=== PATIENT | male | born 1975 | race Caucasian/White ===

== ENCOUNTER 2019-02-28 16:13 | Emergency (ER) | payer BC ==
--- NOTE | 2019-02-28 17:27 | RAD ---
Radiograph right leg tibia-fibula 2 views: DATE: 02/28/2019 HISTORY: Erythema and pain of right leg. FINDINGS: No fracture or periostitis, and no osteolytic, osteoblastic, or permeative lesion, involving tibia or fibula. Diffuse superficial soft tissue edema. No subcutaneous emphysema or soft tissue calcification. IMPRESSION: 1. No osseous abnormality. 2. Soft tissue edema.
[2019-02-28 17:47] LABS: #Eosinphils 0.1 thou/uL (0.0-0.7); #Monocytes 0.9 thou/uL (0.11-0.59); #Neutrophils 12.1 thou/uL (1.40-6.50); %Basophils 0.3 % (0.0-1.0); %Eosinophils 0.6 % (0.0-10.0); %Lymphocytes 6.8 % (21.0-51.0); %Monocytes 6.3 % (0.0-10.0); %Neutrophils 86.1 % (42.0-75.0); Hemoglobin 15.9 g/dL (14.0-18.0); Mean Corpuscular HGB CONC 35.2 g/dL (32.0-36.0); Mean Corpuscular Hemoglobin 34.6 pg (27.0-31.0); Mean Corpuscular Volume 98.3 fL (78.0-98.0); Mean Platelet Volume 8.7 fL (7.4-10.4); Platelet Count 173 thou/uL (130-400); RBC Distribution Width 11.7 % (11.5-14.5); Red Blood Cell (RBC) Count 4.59 mill/uL (4.70-6.10)
[2019-02-28 18:10] LABS: ALT (SGPT) 29 U/L (8-55); AST (SGOT) 33 U/L (5-34); Albumin 4.4 g/dL (3.5-5.0); Alkaline Phosphatase 65 U/L (40-150); Anion Gap 15 mmol/L (10-20); BUN (Urea Nitrogen) 11 mg/dL (8.9-20.6); Calc. Creatinine Clearance 0 mL/min (70-130); Calcium 9.4 mg/dL (7.8-10.44); Carbon Dioxide 25 mmol/L (22-29); Chloride 101 mmol/L (98-107); Estimated GFR-MDRD 86; Globulin 3.4 g/dL (2.4-3.5); Glucose 109 mg/dL (70-105); Potassium 4.5 mmol/L (3.5-5.1); Protein, Total 7.8 g/dL (6.0-8.3); Sodium 136 mmol/L (136-145)
[2019-02-28] MEDS ORDERED: Clindamycin/D5W 600 mg/50 ml Premix Bag ONE (18:27)
--- NOTE | 2019-02-28 18:29 | ULT ---
VENOUS DUPLEX SONOGRAM RIGHT LOWER EXTREMITY: 02/28/19 HISTORY: Right leg pain and edema. FINDINGS: The right common femoral vein and greater saphenous junction were evaluated along with the femoral, d eep femoral, popliteal, and posterior tibial veins. There is good color and spectral Doppler flow, co mpression and augmentation. At the right lower leg in region of swelling, a sagittally oriented fluid collection measures up to 5 .0 cm length. It lies deep to the subcutaneous tissues, apparently immediately adjacent to the underl patrica bone. IMPRESSION: No sonographic evidence of DVT within the right lower extremity. POS: [facility]
== END 2019-02-28 19:30 | disposition home or self-care (01) ==
LOC: ERS 16:13
DX: L03.115 Cellulitis of right lower limb (principal); E78.5 Hyperlipidemia, unspecified; I10 Essential (primary) hypertension; K21.9 Gastro-esophageal reflux disease without esophagitis; Z79.899 Other long term (current) drug therapy
CPT/HCPCS: 80053; 83605; 85025; 85652; 86140; 87040; 87077; 87149; 96365; J3490

== ENCOUNTER 2019-03-02 20:58 | Inpatient (IN) | payer BC ==
[2019-03-02] MEDS ORDERED: Acetaminophen 500 MG TAB ONE (21:31)
[2019-03-02] MEDS ORDERED: Vancomycin HCl 1.5 GM in Sodium Chloride 0.9% 250 ML 300 ML IVPB ONE (21:45)
--- NOTE | 2019-03-02 21:54 | RAD ---
RIGHT LEG THREE VIEWS: 03/02/19 HISTORY: Swelling in the right leg. FINDINGS/IMPRESSION: Comparison made with exam of 02/28/19. The bony structures are intact. No fracture, dislocation, bony destruction or periosteal reaction is seen. POS: [facility]
--- NOTE | 2019-03-02 21:56 | RAD ---
PORTABLE CHEST ONE VIEW: 03/02/19 at 9:50 p.m. HISTORY: Fever, right leg cellulitis. FINDINGS: The heart size is normal. The lungs are expanded without focal areas of consolidation, pneumothoraces , bela pulmonary edema, or pleural effusions. IMPRESSION: No acute process. POS: [facility]
[2019-03-02 22:04] LABS: #Basophils 0.1 thou/uL (0.0-0.2); #Eosinphils 0.4 thou/uL (0.0-0.7); #Lymphocytes 1.4 thou/uL (1.20-3.40); #Monocytes 1.1 thou/uL (0.11-0.59); #Neutrophils 7.4 thou/uL (1.40-6.50); %Basophils 0.6 % (0.0-1.0); %Eosinophils 3.9 % (0.0-10.0); %Lymphocytes 13.5 % (21.0-51.0); %Monocytes 10.3 % (0.0-10.0); %Neutrophils 71.6 % (42.0-75.0); Hemoglobin 14.8 g/dL (14.0-18.0); Mean Corpuscular HGB CONC 34.4 g/dL (32.0-36.0); Mean Corpuscular Hemoglobin 34.9 pg (27.0-31.0); Mean Platelet Volume 8.2 fL (7.4-10.4); Platelet Count 202 thou/uL (130-400); RBC Distribution Width 11.7 % (11.5-14.5); Red Blood Cell (RBC) Count 4.22 mill/uL (4.70-6.10); White Blood Cell (WBC) Count 10.4 thou/uL (4.8-10.8)
[2019-03-02 22:27] LABS: ALT (SGPT) 37 U/L (8-55); AST (SGOT) 37 U/L (5-34); Albumin 3.9 g/dL (3.5-5.0); Alkaline Phosphatase 76 U/L (40-150); Anion Gap 15 mmol/L (10-20); BUN (Urea Nitrogen) 12 mg/dL (8.9-20.6); Bilirubin, Total 1.1 mg/dL (0.2-1.2); Calc. Creatinine Clearance 0 mL/min (70-130); Carbon Dioxide 22 mmol/L (22-29); Chloride 103 mmol/L (98-107); Estimated GFR-MDRD Greater than 90; Globulin 3.1 g/dL (2.4-3.5); Glucose 88 mg/dL (70-105); Sodium 136 mmol/L (136-145)
[2019-03-02 22:59] LABS: Bacteria/HPF None Seen HPF (None Seen); Bilirubin Negative (Negative); Blood, Urine Negative (Negative); Clarity Clear (Clear); Glucose, Urine (Dipstick) Normal (Negative); Leukocyte Negative Leu/uL (Negative); Nitrite Negative (Negative); Protein, Urine (Dipstick) 30 mg/dL (Neg-Trace); RBC/HPF 0-3 HPF (0-3); Squamous Epithelial None Seen HPF (0-3); Urobilinogen Normal mg/dL (Less than 2); WBC/HPF 0-3 HPF (0-3)
[2019-03-03] MEDS ORDERED: Ondansetron ODT 4 MG TAB SL PRN (00:57)
[2019-03-03] MEDS ORDERED: Ondansetron PF 4 MG/2 ML Vial IVP PRN ×3 (00:57→01:24)
[2019-03-03] MEDS ORDERED: Acetaminophen 325 MG TAB PO PRN ×2 (00:57→01:24)
--- NOTE | 2019-03-03 01:09 | PDOC.HHP ---
Hospitalist HPI - History of Present Illness CC: The swelling in my leg is not getting better History of Present Illness: Mr. Medina is a 43 year old male with a history of hypertension and elevated cholesterol. He noted some swelling and redness in both legs beginning about a week ago. He says he was prescribed Lasix by his physician which has helped with the swelling. His job is in ranching, and he wears boots, which he believes were rubbing against his legs. He developed redness and soreness especially on the right leg. He went to Urgent care, and was prescribed Clindamycin on . He says he has been taking the antibiotics, and staying off his leg as instructed but it has not gotten any better. He notes some fever, and chills in the past few days, but denies any nausea or vomiting, and no other symptoms such as chest pain os difficulty breathing. He is being admitted for failed outpatient treatment of cellulitis. Hospitalist ROS - Review of Systems Constitutional: reports: fever, chills, sweats (no weakness or malaise) Eyes: denies: pain, vision change, conjunctivae inflammation, eyelid inflammation, redness, other ENT: denies: ear pain, ear discharge, nose pain, nose discharge, nose congestion , mouth pain, mouth swelling, throat pain, throat swelling, other Respiratory: denies: cough, dry, shortness of breath, hemoptysis, SOB with excertion, pleuritic pain, sputum, wheezing, other Cardiovascular: reports: edema (+ edema in the right leg >left). denies: chest pain, palpitations, orthopnea, paroxysmal noc. dyspnea, light headedness, other Gastrointestinal: denies: nausea, vomitting, abdominal pain, diarrhea, constipation, melena, hematochezia, other Genitourinary: denies: dysuria, frequency, incontinence, hematuria, retention, other Musculoskeletal: reports: neck pain, leg pain (swelling and redness of the legs as in the HPI). denies: shoulder pain, arm pain, back pain, hand pain, foot pain, other Skin: reports: rash (+ redness of the lower extremities). denies: lesions, nasra , bruising, other Neurological: reports: weakness Hospitalist History - Past Medical History Cardiac: reports: HTN Endocrine: reports: Other (Hyperlipidemia) - Past Surgical History Past Surgical History: reports: Other ([place] tooth removed) - Family History Family History: reports: cancer (Colon cancer in his father, and grandfather) - Social History Smoking Status: Never smoker Alcohol: reports: Occassional (Beer) Drugs: reports: none Living Situation: With Family Domestic Violence: Negative Occupation: Rancher Activity level: independent ambulation Other Social History: ALLERGIES: NKDA CODE STATUS: FULL CODE MEDICATIONS: Lipitor 40 mg a day Omeprazole 20 mg a day Cleocin 300mg QID Amlodipine 10 mg a day Potassium Chloride Ultram 50mg as needed Vitamin B12 - Exam Eye: PERRL, anicteric sclera ENT: normocephalic atraumatic, no oropharyngeal lesions, moist mucosa Neck: supple, symmetric, no JVD, no thyromegaly, no lymphadenopathy, no carotid bruit Heart: RRR, no murmur, no gallops, no rubs, normal peripheral pulses Respiratory: CTAB, no wheezes, no rales, no ronchi, normal chest expansion, no tachypnea, normal percussion Gastrointestinal: soft, non-tender, non-distended, normal bowel sounds, no palpable masses, no hepatomegaly, no splenomegaly Extremities: no cyanosis, no clubbing, 1+ LE edema (+ swelling in the right leg 2x larger than the left, + erythema, and warmth on the right) Skin: normal turgor Neurological: CN's grossly intact, normal sensation to touch, no weakness, no focal deficits Musculoskeletal: normal tone, normal strength, no muscle wasting Psychiatric: normal affect, normal behavior, A&O x 3 Hospitalist Results - Labs Result Diagrams: 03/02/19 21:57 03/02/19 21:57 Lab results: WBC 10.4 thou/uL (4.8-10.8) 03/02/19 21:57 Hgb 14.8 g/dL (14.0-18.0) 03/02/19 21:57 Hct 42.9 % (42.0-52.0) 03/02/19 21:57 MCV 102.0 fL (78.0-98.0) H 03/02/19 21:57 Plt Count 202 thou/uL (130-400) 03/02/19 21:57 Neutrophils % 71.6 % (42.0-75.0) 03/02/19 21:57 Sodium 136 mmol/L (136-145) 03/02/19 21:57 Potassium 4.0 mmol/L (3.5-5.1) 03/02/19 21:57 Chloride 103 mmol/L (98-107) 03/02/19 21:57 Carbon Dioxide 22 mmol/L (22-29) 03/02/19 21:57 BUN 12 mg/dL (8.9-20.6) 03/02/19 21:57 Creatinine 0.87 mg/dL (0.7-1.3) 03/02/19 21:57 Glucose 88 mg/dL (70-105) 03/02/19 21:57 Lactic Acid 1.5 mmol/L (0.5-2.2) 03/02/19 21:13 Calcium 9.0 mg/dL (7.8-10.44) 03/02/19 21:57 Total Bilirubin 1.1 mg/dL (0.2-1.2) 03/02/19 21:57 AST 37 U/L (5-34) H 03/02/19 21:57 ALT 37 U/L (8-55) 03/02/19 21:57 Alkaline Phosphatase 76 U/L (40-150) 03/02/19 21:57 Serum Total Protein 7.0 g/dL (6.0-8.3) 03/02/19 21:57 Albumin 3.9 g/dL (3.5-5.0) 03/02/19 21:57 Urine Ketones Negative mg/dL (Negative) 03/02/19 22:40 Urine Blood Negative (Negative) 03/02/19 22:40 Urine Nitrite Negative (Negative) 03/02/19 22:40 Ur Leukocyte Esterase Negative April/uL (Negative) 03/02/19 22:40 Urine RBC 0-3 HPF (0-3) 03/02/19 22:40 Urine WBC 0-3 HPF (0-3) 03/02/19 22:40 Ur Squamous Epith Cells None Seen HPF (0-3) 03/02/19 22:40 Urine Bacteria None Seen HPF (None Seen) 03/02/19 22:40 Hospitalist H&P A/P - Problem (1) Cellulitis of right leg Code(s): L03.115 - CELLULITIS OF RIGHT LOWER LIMB Status: Acute (2) Hypertension Code(s): I10 - ESSENTIAL (PRIMARY) HYPERTENSION Status: Acute (3) Hyperlipidemia Code(s): E78.5 - HYPERLIPIDEMIA, UNSPECIFIED Status: Acute - Plan Plan: * Cellulitis- will have the area marked. Will place on Vancomycin and Zosyn * HTN- reconcile and re-start home medications, and have Hydralazine available for PRN * Hyperlipidemia- continue Lipitor * Place on DVT and GI Prophylaxis
[2019-03-03] MEDS ORDERED: hydrALAZINE 20 MG/ML VIAL SLOW IVP PRN (01:24)
[2019-03-03] MEDS ORDERED: Zolpidem Tartrate 5 MG TAB PO PRN (01:24)
[2019-03-03] MEDS ORDERED: Ondansetron ODT 4 MG TAB PO PRN ×2 (01:24)
[2019-03-03 02:06] VITALS: BMI 28.4
[2019-03-03] MEDS: Piperacillin/Tazobactam 3.375 GM in Sodium Chloride 0.9% 100 ML IVPB SCH ×4 (04:30→20:03)
[2019-03-03 05:03] LABS: #Basophils 0.1 thou/uL (0.0-0.2); #Eosinphils 0.5 thou/uL (0.0-0.7); #Lymphocytes 1.6 thou/uL (1.20-3.40); #Monocytes 0.9 thou/uL (0.11-0.59); #Neutrophils 5.4 thou/uL (1.40-6.50); %Basophils 0.8 % (0.0-1.0); %Eosinophils 5.8 % (0.0-10.0); %Lymphocytes 19.3 % (21.0-51.0); %Monocytes 10.3 % (0.0-10.0); %Neutrophils 63.8 % (42.0-75.0); Hemoglobin 12.5 g/dL (14.0-18.0); Mean Corpuscular HGB CONC 34.4 g/dL (32.0-36.0); Mean Corpuscular Hemoglobin 34.7 pg (27.0-31.0); Platelet Count 179 thou/uL (130-400); RBC Distribution Width 11.6 % (11.5-14.5); White Blood Cell (WBC) Count 8.5 thou/uL (4.8-10.8)
[2019-03-03 05:24] LABS: Anion Gap 13 mmol/L (10-20); BUN (Urea Nitrogen) 10 mg/dL (8.9-20.6); Calc. Creatinine Clearance 150 mL/min (70-130); Calcium 8.2 mg/dL (7.8-10.44); Carbon Dioxide 22 mmol/L (22-29); Chloride 106 mmol/L (98-107); Estimated GFR-MDRD Greater than 90; Glucose 100 mg/dL (70-105); Potassium 3.3 mmol/L (3.5-5.1); Sodium 138 mmol/L (136-145)
[2019-03-03] MEDS ORDERED: Potassium Chloride 20 MEQ TAB PO SCH (07:30)
[2019-03-03] MEDS: Enoxaparin Sodium 40 MG/0.4 ML SYRINGE SC SCH (08:11)
[2019-03-03] MEDS: Saccharomyces boulardii 250 MG CAP PO SCH (08:11)
[2019-03-03] MEDS ORDERED: Vancomycin HCl 1 GM in Premix Bag 1 BAG IVPB SCH (09:00)
[2019-03-03] MEDS: Vancomycin HCl 1.5 GM in Sodium Chloride 0.9% 250 ML 300 ML IVPB SCH ×2 (09:35→21:38)
--- NOTE | 2019-03-03 11:15 | PDOC.HOSPP ---
- Subjective Encounter Date: 03/03/19 Encounter Time: 11:15 Subjective: 43 y/o with HTN admitted with persistent right lower extremity redness and swelling despite oral clindamycin therapy. No associated fever, cough, SOB, PND or orthopnea. reported that it started on both lower limbs but left has improved. - Objective Vital Signs & Weight: Vital Signs (12 hours) Temp Pulse Resp BP Pulse Ox 03/03/19 07:54 99.0 F 98 20 126/75 98 03/03/19 05:24 98.5 F 87 18 116/66 100 03/03/19 01:30 98.5 F 90 18 128/75 98 Weight Weight 181 lb 9 oz Result Diagrams: 03/03/19 04:31 03/03/19 04:31 Hospitalist ROS - Medication Medications: Active Medications Generic Name Dose Route Start Last Admin Trade Name Freq PRN Reason Stop Dose Admin Enoxaparin Sodium 40 mg 03/03/19 09:00 03/03/19 08:11 Lovenox SC 40 mg 0900 LILIANA Administration Piperacillin Sod/Tazobactam 100 mls @ 200 mls/hr 03/03/19 03:00 03/03/19 08: 11 Sod 3.375 gm/ Sodium Chloride IVPB 100 mls 0300,0900,1500,2100 LILIANA Administration Vancomycin HCl 1.5 gm/ Sodium 300 mls @ 200 mls/hr 03/03/19 09:00 03/03/19 09 :35 Chloride IVPB 300 mls Q12HR LILIANA Administration Saccharomyces Boulardii 250 mg 03/03/19 09:00 03/03/19 08:11 Florastor PO 250 mg DAILY LILIANA Administration - Exam General Appearance: awake alert Eye: anicteric sclera ENT: normocephalic atraumatic Neck: supple, symmetric, no JVD Heart: RRR, no murmur Respiratory: CTAB Gastrointestinal: soft, non-tender, non-distended, normal bowel sounds Extremeties - other findings: Right leg swelling and erythema noted Skin - other findings: scattered papules/petechia with some excoriation noted on the left leg Neurological: CN's grossly intact, no focal deficits Psychiatric: normal affect, A&O x 3 Hosp A/P (1) Leg edema, right Code(s): R60.0 - LOCALIZED EDEMA Status: Acute (2) Hypokalemia Code(s): E87.6 - HYPOKALEMIA Status: Acute (3) Cellulitis of right leg Code(s): L03.115 - CELLULITIS OF RIGHT LOWER LIMB Status: Acute (4) Hyperlipidemia Code(s): E78.5 - HYPERLIPIDEMIA, UNSPECIFIED Status: Acute (5) Hypertension Code(s): I10 - ESSENTIAL (PRIMARY) HYPERTENSION Status: Acute - Plan Replete serum potassium and get magnesium level. Get BNP given history of bilateral leg edema. Also get venous doppler to rule out DVT Continue IV antibiotics. Keep affected limb elevated.
[2019-03-03] MEDS: diphenhydrAMINE 25 MG CAP PO PRN (21:12)
--- NOTE | 2019-03-03 21:24 | ULT ---
VENOUS DOPPLER ULTRASOUND OF THE RIGHT LOWER EXTREMITY: History: Right lower extremity pain and redness. Technique: Grayscale, color, and spectral doppler imaging of the deep venous system of the right lowe r extremity was performed. FINDINGS: There is good flow, compression, and augmentation noted in the right common femoral, femoral, deep fe moral, popliteal, posterior tibial and greater saphenous veins. There is a 3.8 x 5.1 x 1.3 cm fluid collection in the right lechuga of unknown etiology. IMPRESSION: No evidence of DVT in the right lower extremity. POS: [facility]
[2019-03-04] MEDS: Piperacillin/Tazobactam 3.375 GM in Sodium Chloride 0.9% 100 ML IVPB SCH ×4 (02:20→21:55)
[2019-03-04 05:44] LABS: Albumin 3.3 g/dL (3.5-5.0); Anion Gap 14 mmol/L (10-20); BUN (Urea Nitrogen) 9 mg/dL (8.9-20.6); BUN/Creatinine Ratio 11.39; Calc. Creatinine Clearance 139 mL/min (70-130); Calcium 8.6 mg/dL (7.8-10.44); Carbon Dioxide 22 mmol/L (22-29); Chloride 108 mmol/L (98-107); Estimated GFR-MDRD Greater than 90; Glucose 100 mg/dL (70-105); Phosphorus 3.3 mg/dL (2.3-4.7); Potassium 3.5 mmol/L (3.5-5.1); Sodium 140 mmol/L (136-145)
[2019-03-04] MEDS: Enoxaparin Sodium 40 MG/0.4 ML SYRINGE SC SCH (08:19)
[2019-03-04] MEDS: Saccharomyces boulardii 250 MG CAP PO SCH (08:19)
[2019-03-04] MEDS: Vancomycin HCl 1.5 GM in Sodium Chloride 0.9% 250 ML 300 ML IVPB SCH ×2 (08:22→17:07)
[2019-03-04 08:41] LABS: Vancomycin, Trough 8.8 ug/mL
[2019-03-04] MEDS: diphenhydrAMINE 25 MG CAP PO PRN ×2 (14:47→21:55)
--- NOTE | 2019-03-04 16:24 | PDOC.HOSPP ---
- Subjective Encounter Date: 03/04/19 Encounter Time: 11:22 Subjective: 43 y/o with HTN admitted with persistent right lower extremity redness and swelling despite oral clindamycin therapy. No associated fever, cough, SOB, PND or orthopnea. Feeling better. Remained afebrile. - Objective Vital Signs & Weight: Vital Signs (12 hours) Temp Pulse Resp BP Pulse Ox 03/04/19 12:00 98.1 F 82 16 137/82 99 03/04/19 08:15 98 03/04/19 08:00 98.3 F 85 18 117/65 98 Weight Weight 181 lb 9 oz I&O: 03/03/19 03/04/19 03/05/19 06:59 06:59 06:59 Intake Total 1400 Balance 1400 Result Diagrams: 03/03/19 04:31 03/04/19 04:45 Hospitalist ROS - Medication Medications: Active Medications Generic Name Dose Route Start Last Admin Trade Name Freq PRN Reason Stop Dose Admin Diphenhydramine HCl 25 mg 03/03/19 20:46 03/04/19 14:47 Benadryl PO 25 mg Q6H PRN Administration Itching & Insomnia Enoxaparin Sodium 40 mg 03/03/19 09:00 03/04/19 08:19 Lovenox SC 40 mg 0900 LILIANA Administration Piperacillin Sod/Tazobactam 100 mls @ 200 mls/hr 03/03/19 03:00 03/04/19 14: 43 Sod 3.375 gm/ Sodium Chloride IVPB 100 mls 0300,0900,1500,2100 LILIANA Administration Saccharomyces Boulardii 250 mg 03/03/19 09:00 03/04/19 08:19 Florastor PO 250 mg DAILY LILIANA Administration - Exam General Appearance: awake alert Eye: anicteric sclera ENT: normocephalic atraumatic Neck: supple, symmetric, no JVD Heart: RRR Respiratory: no wheezes, no rales, no ronchi, normal chest expansion, no tachypnea Gastrointestinal: soft, non-tender, non-distended, normal bowel sounds Gastrointestinal - other findings: obese Extremeties - other findings: Regressing right lower extremity edema. Now localized anteriorly Neurological: CN's grossly intact, no focal deficits Psychiatric: normal affect, A&O x 3 Hosp A/P (1) Cellulitis of right leg Code(s): L03.115 - CELLULITIS OF RIGHT LOWER LIMB Status: Acute (2) Leg edema, right Code(s): R60.0 - LOCALIZED EDEMA Status: Acute (3) Hypokalemia Code(s): E87.6 - HYPOKALEMIA Status: Acute (4) Hyperlipidemia Code(s): E78.5 - HYPERLIPIDEMIA, UNSPECIFIED Status: Acute (5) Hypertension Code(s): I10 - ESSENTIAL (PRIMARY) HYPERTENSION Status: Acute - Plan Continue IV antibiotic Re evaluate patient tomorrow with a view to consulting Gen for possible I&D. Keep affected limb elevated.
[2019-03-04] MEDS ORDERED: Potassium Chloride 20 MEQ TAB PO SCH (16:30)
[2019-03-05] MEDS: Vancomycin HCl 1.5 GM in Sodium Chloride 0.9% 250 ML 300 ML IVPB SCH ×3 (00:29→16:58)
[2019-03-05] MEDS: Piperacillin/Tazobactam 3.375 GM in Sodium Chloride 0.9% 100 ML IVPB SCH ×4 (03:41→20:55)
[2019-03-05] MEDS: diphenhydrAMINE 25 MG CAP PO PRN ×2 (04:48→21:12)
[2019-03-05 08:25] LABS: Vancomycin, Trough 19.5 ug/mL
[2019-03-05] MEDS: Enoxaparin Sodium 40 MG/0.4 ML SYRINGE SC SCH (08:50)
[2019-03-05] MEDS: Saccharomyces boulardii 250 MG CAP PO SCH (08:51)
--- NOTE | 2019-03-05 14:08 | PDOC.HOSPP ---
- Subjective Encounter Date: 03/05/19 Encounter Time: 11:36 Subjective: 43 y/o with HTN admitted with persistent right lower extremity redness and swelling despite oral clindamycin therapy. No associated fever, cough or SOB. Feeling better. Swelling has regressed significantly. Remained afebrile. - Objective Vital Signs & Weight: Vital Signs (12 hours) Temp Pulse Resp BP Pulse Ox 03/05/19 12:00 99.4 F 79 16 127/82 98 03/05/19 08:00 98 03/05/19 07:28 98 F 80 18 120/81 98 03/05/19 03:33 98.3 F 80 16 132/79 98 Weight Weight 181 lb 9 oz I&O: 03/04/19 03/05/19 03/06/19 06:59 06:59 06:59 Intake Total 1400 1900 Output Total 3 Balance 1400 1897 Result Diagrams: 03/03/19 04:31 03/04/19 04:45 Hospitalist ROS - Medication Medications: Active Medications Generic Name Dose Route Start Last Admin Trade Name Freq PRN Reason Stop Dose Admin Diphenhydramine HCl 25 mg 03/03/19 20:46 03/05/19 04:48 Benadryl PO 25 mg Q6H PRN Administration Itching & Insomnia Enoxaparin Sodium 40 mg 03/03/19 09:00 03/05/19 08:50 Lovenox SC 40 mg 0900 LILIANA Administration Piperacillin Sod/Tazobactam 100 mls @ 200 mls/hr 03/03/19 03:00 03/05/19 08: 51 Sod 3.375 gm/ Sodium Chloride IVPB 100 mls 0300,0900,1500,2100 LILIANA Administration Vancomycin HCl 1.5 gm/ Sodium 300 mls @ 200 mls/hr 03/04/19 17:00 03/05/19 09 :26 Chloride IVPB 300 mls 0100,0900,1700 LILIANA Administration Saccharomyces Boulardii 250 mg 03/03/19 09:00 03/05/19 08:51 Florastor PO 250 mg DAILY LILIANA Administration - Exam General Appearance: awake alert Eye: anicteric sclera ENT: normocephalic atraumatic Neck: supple, symmetric Heart: RRR Respiratory: no wheezes, no rales, no ronchi, normal chest expansion Gastrointestinal: soft, non-tender, non-distended, normal bowel sounds Extremeties - other findings: Trace edema or right leg. localised area of swelling with fluctuancy on leg Neurological: no focal deficits Musculoskeletal: normal tone, normal strength, no muscle wasting Psychiatric: normal affect, A&O x 3 Hosp A/P (1) Cellulitis of right leg Code(s): L03.115 - CELLULITIS OF RIGHT LOWER LIMB Status: Acute (2) Leg edema, right Code(s): R60.0 - LOCALIZED EDEMA Status: Acute (3) Hypokalemia Code(s): E87.6 - HYPOKALEMIA Status: Acute (4) Hyperlipidemia Code(s): E78.5 - HYPERLIPIDEMIA, UNSPECIFIED Status: Acute (5) Hypertension Code(s): I10 - ESSENTIAL (PRIMARY) HYPERTENSION Status: Acute (6) Abscess of right leg Code(s): L02.415 - CUTANEOUS ABSCESS OF RIGHT LOWER LIMB Status: Acute - Plan Continue IV antibiotic consulting Gen for possible I&D. Keep affected limb elevated.
[2019-03-06] MEDS: Vancomycin HCl 1.5 GM in Sodium Chloride 0.9% 250 ML 300 ML IVPB SCH (01:27)
--- NOTE | 2019-03-06 01:32 | CON ---
DATE OF CONSULTATION: 03/05/2019 SERVICE CONSULTING: Hospitalist, Dr. Zhu. REASON FOR CONSULT: Irrigation & Debridement of leg abscess. HISTORY OF PRESENT ILLNESS: The patient is a 43-year-old male with past medical history of hypertension and hypercholesterolemia. About 1 week ago, he noticed a bump on the anterior portion of his right lechuga. 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 However, a week prior to this, both legs were swollen and he was given Lasix by his primary care physician. After noticing the bump on his lechuga, he noticed redness and soreness from his ankle to his thigh on his right leg. He was given clindamycin. He was taking the antibiotics. However, his pain was getting worse and it was difficult for him to walk. On Monday, he was admitted to be treated for cellulitis refractory to outpatient oral therapy. Since that time, he has received vancomycin and Zosyn here in the hospital, which has greatly reduced the redness and swelling to a focal area on the anterior portion of his right lechuga. He notes it is fly frame tender to walk at times. He has not experienced any fevers or other malaise. PAST SURGICAL HISTORY: Includes wisdom teeth removal. FAMILY HISTORY: Includes colon cancer in his father and grandfather. Socially , the patient has never smoked. Occasionally drinks alcohol and does not do any drugs. He is a rancher and stays very active. ALLERGIES: HE HAS NO KNOWN DRUG ALLERGIES. CODE STATUS: He is a full code. PHYSICAL EXAMINATION/OBJECTIVE: VITAL SIGNS: Temp 98.5, pulse 80, respirations 18, saturating 99% on room air, blood pressure 128/81. GENERAL: No acute distress. Appears comfortable. HEENT: Head is normocephalic and atraumatic. Pupils equal and reactive to light. No cervical lymphadenopathy. CARDIAC: Regular rate and rhythm. No murmurs. RESPIRATORY: Nonlabored breathing. No respiratory distress. ABDOMEN: Nondistended, soft, nontender. EXTREMITIES: Left lower extremity appears normal. Right lower extremity with area of about 3 cm in diameter, firm, erythematous nodule. It is tender to palpation. It has areas of softness and areas that were more firm. No crepitus, no fluctuance. LABORATORY DATA: No recent labs. His last WBC was 8.5 on 03/03/2019. His basic metabolic panel was largely normal. IMAGING DATA: The patient had a vascular ultrasound of his right leg, which showed good flow compression and augmentation of the right common femoral, deep femoral , popliteal, posterior tibial, and greater saphenous veins. A 3.8 x 5.1 x 1.3 cm fluid collection in the right lechuga was noted. ASSESSMENT: 1. 43-year-old male with abscess of the right lechuga likely secondary to trauma such as a spider bite. 2. Right extremity cellulitis of the lower limb. 3. History of hypertension and hyperlipidemia. PLAN: We will do a bedside I&D and aspirate any fluid tomorrow. The procedure was explained to the patient and he agreed. We will have the nurse complete his consent form tomorrow prior to procedure. He is to continue his antibiotics per the primary team. This patient was seen, examined, and discussed with Dr. Samayoa, the attending physician, who agrees with the assessment and plan. Job ID: [id number] [facility]
--- NOTE | 2019-03-06 02:05 | PRG ---
DATE OF SERVICE: 03/06/2019 Mr. Kunz is a 43-year-old gentleman who came in for evaluation of a right leg infection and right leg abscess. Dr. Samayoa was consulted and Dr. Samayoa saw the patient this afternoon and made the decision to take the patient to the OR tomorrow for I and D. The patient has been put on n.p.o. and hold Lovenox at 9am tomorrow. Ready for I and D of the right leg abscess. The patient reports that he has been doing good. The patient is afebrile. Vital signs stable. Pain is well controlled. Right leg swelling subsided. The patient tolerated with current antibiotic regimen. Job ID: [id number] [facility]
[2019-03-06] MEDS: Piperacillin/Tazobactam 3.375 GM in Sodium Chloride 0.9% 100 ML IVPB SCH ×4 (03:43→20:23)
[2019-03-06] MEDS: diphenhydrAMINE 25 MG CAP PO PRN ×2 (07:36→20:22)
[2019-03-06 08:21] LABS: Vancomycin, Trough 23.4 ug/mL
[2019-03-06] MEDS: Saccharomyces boulardii 250 MG CAP PO SCH ×2 (08:36→12:22)
[2019-03-06] MEDS: Vancomycin HCl 1.25 GM in Sodium Chloride 0.9% 250 ML 250 ML IVPB SCH ×2 (08:43→17:21)
[2019-03-06] MEDS ORDERED: Lidocaine 1% w/Epinephrine 1:100K 20 ML VIAL FS SCH (08:45)
[2019-03-06] MEDS ORDERED: Lidocaine 1% w/Epinephrine 1:200K 30 ML VIAL ONE (09:13)
[2019-03-06] MEDS ORDERED: Morphine 4 MG/ML VIAL SLOW IVP SCH (11:30)
[2019-03-06] MEDS ORDERED: Ibuprofen 800 MG TAB PO PRN (11:49)
[2019-03-06] MEDS ORDERED: traMADol HCl 50 MG TAB PO PRN (11:49)
[2019-03-06] MEDS ORDERED: traMADol HCl 50 MG TAB PO SCH (12:00)
[2019-03-06] MEDS: Enoxaparin Sodium 40 MG/0.4 ML SYRINGE SC SCH (12:24)
--- NOTE | 2019-03-06 15:54 | OP ---
DATE OF PROCEDURE: 03/06/2019 PREOPERATIVE DIAGNOSIS: Right leg abscess. POSTOPERATIVE DIAGNOSIS: Right leg abscess. PROCEDURE PERFORMED: Incision and drainage of anterior right leg abscess. INDICATIONS FOR PROCEDURE: A 43-year-old man presented with 1-week history of a painful palpable nodular mass in the anterior right lower leg. There was significant amount of redness. The patient was admitted and placed on intravenous antibiotics. Ultrasound revealed a fluid collection. Decision was made therefore to drain this abscess. DESCRIPTION OF PROCEDURE: Informed consent was obtained from the patient and he was placed in supine position. Anterior right leg was sterilely prepped and draped in usual fashion. The skin over the dome of the palpable flocculence was anesthetized with 1% lidocaine with epinephrine. A crucifix incision was made here using 11 scalpel. Large amount of pus egressed and culture was taken. The abscess cavity was irrigated with saline and packed with 0.5-inch iodoform gauze. A 4 x 4 dressing was placed over this and secured with Lavelle wrap. The patient tolerated the procedure without any apparent complication and remains hemodynamically stable following completion of procedure. Job ID: [id number]
--- NOTE | 2019-03-06 18:04 | PDOC.HOSPP ---
- Subjective Encounter Date: 03/06/19 Encounter Time: 18:02 Subjective: 43 y/o with HTN admitted with persistent right lower extremity redness and swelling despite oral clindamycin therapy. No associated fever, cough or SOB. Had I&D of left proximal lechuga abscess with drainage. Feeling better. Remained afebrile. - Objective Vital Signs & Weight: Vital Signs (12 hours) Temp Pulse Resp BP Pulse Ox 03/06/19 15:38 97.8 F 78 18 111/72 98 03/06/19 11:09 98.6 F 79 18 134/78 100 03/06/19 08:00 97 03/06/19 07:18 98.1 F 78 20 129/81 97 Weight Weight 181 lb 9 oz I&O: 03/05/19 03/06/19 03/07/19 06:59 06:59 06:59 Intake Total 1900 2980 Output Total 3 Balance 1897 2980 Result Diagrams: 03/03/19 04:31 03/04/19 04:45 Hospitalist ROS - Medication Medications: Active Medications Generic Name Dose Route Start Last Admin Trade Name Freq PRN Reason Stop Dose Admin Diphenhydramine HCl 25 mg 03/03/19 20:46 03/06/19 07:36 Benadryl PO 25 mg Q6H PRN Administration Itching & Insomnia Enoxaparin Sodium 40 mg 03/03/19 09:00 03/06/19 12:24 Lovenox SC 40 mg 0900 LILIANA Administration Piperacillin Sod/Tazobactam 100 mls @ 200 mls/hr 03/03/19 03:00 03/06/19 14: 33 Sod 3.375 gm/ Sodium Chloride IVPB 100 mls 0300,0900,1500,2100 LILIANA Administration Vancomycin HCl 1.25 gm/ Sodium 250 mls @ 166.667 mls/hr 03/06/19 09:00 17:21 Chloride IVPB 250 mls 0100,0900,1700 LILIANA Administration Ondansetron HCl 4 mg 03/03/19 01:24 03/06/19 11:24 Zofran IVP 4 mg Q6H PRN Administration Nausea/Vomiting Saccharomyces Boulardii 250 mg 03/03/19 09:00 03/06/19 12:22 Florastor PO 250 mg DAILY LILIANA Administration - Exam General Appearance: awake alert Eye: anicteric sclera ENT: dry oral mucosa Neck: supple, symmetric Heart: RRR Respiratory: no wheezes, no rales, no ronchi, normal chest expansion Gastrointestinal: soft, non-tender, non-distended, normal bowel sounds Extremities: no cyanosis Extremeties - other findings: mild left leg edema. proximal left leg dressing noted Neurological: CN's grossly intact, no focal deficits Psychiatric: normal affect, A&O x 3 Hosp A/P (1) Abscess of right leg Code(s): L02.415 - CUTANEOUS ABSCESS OF RIGHT LOWER LIMB Status: Acute (2) Cellulitis of right leg Code(s): L03.115 - CELLULITIS OF RIGHT LOWER LIMB Status: Acute (3) Leg edema, right Code(s): R60.0 - LOCALIZED EDEMA Status: Acute (4) Hypokalemia Code(s): E87.6 - HYPOKALEMIA Status: Acute (5) Hyperlipidemia Code(s): E78.5 - HYPERLIPIDEMIA, UNSPECIFIED Status: Acute (6) Hypertension Code(s): I10 - ESSENTIAL (PRIMARY) HYPERTENSION Status: Acute - Plan Continue IV antibiotic Await microbe ID and susceptibility Keep affected limb elevated.
[2019-03-06] MEDS ORDERED: Morphine 10 MG/ML VIAL SLOW IVP PRN (21:25)
[2019-03-06] MEDS: Acetaminophen/Codeine 30-300mg Tablet PO SCH (21:37)
--- NOTE | 2019-03-06 23:14 | PRG ---
DATE OF SERVICE: 03/06/2019 SUBJECTIVE: Mr. Kunz is a 43-year-old male, comes into evaluation of potential infection and abscess of the right leg. He underwent I and D with Dr. Samayoa today. After I and D, the patient reports feeling better. Pain subsided. He reports no fever or shortness of breath. He requires morphine p.r.n. with the dressing change b.i.d. PLAN: Plan will be to continue dressing change b.i.d. Continue antibiotic. If the patient is stable, he could be able to be changed to p.o. meds tomorrow and discharged. Job ID: [id number]
[2019-03-07] MEDS: Piperacillin/Tazobactam 3.375 GM in Sodium Chloride 0.9% 100 ML IVPB SCH (01:42)
[2019-03-07] MEDS: Vancomycin HCl 1.25 GM in Sodium Chloride 0.9% 250 ML 250 ML IVPB SCH (01:43)
[2019-03-07 05:29] LABS: #Eosinphils 0.8 thou/uL (0.0-0.7); #Lymphocytes 1.3 thou/uL (1.20-3.40); #Monocytes 0.7 thou/uL (0.11-0.59); #Neutrophils 4.1 thou/uL (1.40-6.50); %Basophils 0.3 % (0.0-1.0); %Eosinophils 11.1 % (0.0-10.0); %Lymphocytes 19.4 % (21.0-51.0); %Neutrophils 59.1 % (42.0-75.0); Hemoglobin 13.4 g/dL (14.0-18.0); Mean Corpuscular HGB CONC 34.1 g/dL (32.0-36.0); Mean Corpuscular Hemoglobin 34.8 pg (27.0-31.0); Mean Platelet Volume 7.5 fL (7.4-10.4); Platelet Count 265 thou/uL (130-400); RBC Distribution Width 11.6 % (11.5-14.5); Red Blood Cell (RBC) Count 3.85 mill/uL (4.70-6.10); White Blood Cell (WBC) Count 6.9 thou/uL (4.8-10.8)
[2019-03-07 05:47] LABS: Anion Gap 10 mmol/L (10-20); BUN (Urea Nitrogen) 12 mg/dL (8.9-20.6); Calc. Creatinine Clearance 126 mL/min (70-130); Calcium 8.7 mg/dL (7.8-10.44); Carbon Dioxide 26 mmol/L (22-29); Chloride 107 mmol/L (98-107); Estimated GFR-MDRD Greater than 90; Glucose 93 mg/dL (70-105); Sodium 139 mmol/L (136-145)
[2019-03-07] MEDS: Acetaminophen/Codeine 30-300mg Tablet PO SCH (05:48)
[2019-03-07] MEDS: Linezolid 600 MG TAB PO SCH ×2 (08:48→20:31)
[2019-03-07] MEDS: Amoxicillin/Potassium Clav 875 MG TAB PO SCH ×2 (08:48→20:31)
[2019-03-07] MEDS: Saccharomyces boulardii 250 MG CAP PO SCH (08:48)
[2019-03-07] MEDS: Enoxaparin Sodium 40 MG/0.4 ML SYRINGE SC SCH (08:48)
[2019-03-07] MEDS: diphenhydrAMINE 25 MG CAP PO PRN ×2 (08:48→20:34)
[2019-03-07] MEDS ORDERED: traMADol HCl 50 MG TAB PO PRN (09:34)
[2019-03-07] MEDS ORDERED: Morphine 4 MG/ML VIAL SLOW IVP SCH (09:45)
--- NOTE | 2019-03-07 16:09 | PDOC.HOSPP ---
- Subjective Encounter Date: 03/07/19 Encounter Time: 11:07 Subjective: 43 y/o with HTN admitted with persistent right lower extremity redness and swelling despite oral clindamycin therapy. No associated fever, cough or SOB. Had I&D of left proximal lechuga abscess on 03/06/2019. Feeling better. Remained afebrile. - Objective Vital Signs & Weight: Vital Signs (12 hours) Temp Pulse Resp BP Pulse Ox 03/07/19 15:02 98.6 F 78 18 123/77 98 03/07/19 11:39 98.4 F 75 18 125/74 99 03/07/19 07:58 97.6 F 71 18 117/70 97 Weight Weight 181 lb 9 oz I&O: 03/06/19 03/07/19 03/08/19 06:59 06:59 06:59 Intake Total 2980 3190 Balance 2980 3190 Result Diagrams: 03/07/19 05:05 03/07/19 05:05 Hospitalist ROS - Medication Medications: Active Medications Generic Name Dose Route Start Last Admin Trade Name Freq PRN Reason Stop Dose Admin Amoxicillin/Clavulanate Potassium 875 mg 03/07/19 09:00 03/07/19 08:48 Augmentin PO 875 mg Q12HR LILIANA Administration Diphenhydramine HCl 25 mg 03/03/19 20:46 03/07/19 08:48 Benadryl PO 25 mg Q6H PRN Administration Itching & Insomnia Enoxaparin Sodium 40 mg 03/03/19 09:00 03/07/19 08:48 Lovenox SC Not Given 09 [facility] Linezolid 600 mg 03/07/19 09:00 03/07/19 08:48 Zyvox PO 600 mg Q12HR LILIANA Administration Ondansetron HCl 4 mg 03/03/19 01:24 03/06/19 11:24 Zofran IVP 4 mg Q6H PRN Administration Nausea/Vomiting Saccharomyces Boulardii 250 mg 03/03/19 09:00 03/07/19 08:48 Florastor PO 250 mg DAILY LILIANA Administration - Exam General Appearance: awake alert Eye: anicteric sclera ENT: normocephalic atraumatic, moist mucosa Neck: supple, symmetric, no JVD Heart: RRR Respiratory: no wheezes, no rales, no ronchi, normal chest expansion, no tachypnea Gastrointestinal: soft, non-tender, non-distended, normal bowel sounds Extremities: no cyanosis Extremeties - other findings: mild edema of right lower leg with proximal leg dressing. Neurological: CN's grossly intact, no focal deficits Musculoskeletal: normal tone, normal strength, no muscle wasting Psychiatric: normal affect, A&O x 3 Hosp A/P (1) Abscess of right leg Code(s): L02.415 - CUTANEOUS ABSCESS OF RIGHT LOWER LIMB Status: Acute (2) Cellulitis of right leg Code(s): L03.115 - CELLULITIS OF RIGHT LOWER LIMB Status: Acute (3) Leg edema, right Code(s): R60.0 - LOCALIZED EDEMA Status: Acute (4) Hypokalemia Code(s): E87.6 - HYPOKALEMIA Status: Acute (5) Hyperlipidemia Code(s): E78.5 - HYPERLIPIDEMIA, UNSPECIFIED Status: Acute (6) Hypertension Code(s): I10 - ESSENTIAL (PRIMARY) HYPERTENSION Status: Acute (7) Staph aureus infection Code(s): A49.01 - METHICILLIN SUSCEP STAPH INFECTION, UNSP SITE Status: Acute - Plan DC IV vanc and zosyn and start oral linezolid and augment. await stap aureus susceptibility Analgesic as needed and wound care to continue Keep affected limb elevated.
[2019-03-07] MEDS: traMADol HCl 50 MG TAB PO PRN (20:34)
--- NOTE | 2019-03-08 00:33 | PRG ---
DATE OF SERVICE: SUBJECTIVE: Mr. Kunz is a 43-year-old male who came into evaluation of infection and abscess of right leg. He underwent an I and D by Dr. Samayoa yesterday. After I and D, patient is doing better. Pain is well controlled. He developed no fever or shortness of breath. OBJECTIVE: VITAL SIGNS: Stable. PLAN: Will be to continue pain control, continue dressing change b.i.d., continue antibiotics, continue DVT and gastritis prophylaxis. Job ID: [id number]
--- NOTE | 2019-03-08 05:56 | PRG ---
DATE OF SERVICE: 03/07/2019 SUBJECTIVE: The patient is status post irrigation and debridement and wound packing of lower extremity abscess. Today, the dressing was changed. Packing was removed and it appeared clean without further signs of infection or drainage. Our recommendation is to continue twice daily dressing changes to include wound packing while in the hospital, then switch to daily dressing changes once discharged from hospital. We would ask Case Management to arrange home health to assist in wound care. Patient should be discharged on the appropriate antibiotics once the sensitivities have returned. If home health is not able to see the patient, then outpatient wound care should be arranged for the patient. Patient may follow up with his primary care provider in 2 to 3 weeks or we can be notified by the Wound Care team should the patient need to be seen again. Lastly, if need be, the patient may follow up in the Trauma Clinic in 2 to 3 weeks. Job ID: [id number]
[2019-03-08] MEDS: diphenhydrAMINE 25 MG CAP PO PRN (06:37)
[2019-03-08 06:44] LABS: #Eosinphils 0.8 thou/uL (0.0-0.7); #Lymphocytes 1.5 thou/uL (1.20-3.40); #Monocytes 0.7 thou/uL (0.11-0.59); #Neutrophils 3.2 thou/uL (1.40-6.50); %Basophils 0.7 % (0.0-1.0); %Eosinophils 12.6 % (0.0-10.0); %Lymphocytes 24.1 % (21.0-51.0); %Monocytes 11.1 % (0.0-10.0); %Neutrophils 51.5 % (42.0-75.0); Mean Corpuscular HGB CONC 33.7 g/dL (32.0-36.0); Mean Corpuscular Hemoglobin 33.8 pg (27.0-31.0); Mean Platelet Volume 7.6 fL (7.4-10.4); Platelet Count 247 thou/uL (130-400); RBC Distribution Width 11.5 % (11.5-14.5); Red Blood Cell (RBC) Count 3.84 mill/uL (4.70-6.10); White Blood Cell (WBC) Count 6.2 thou/uL (4.8-10.8)
[2019-03-08] MEDS: Enoxaparin Sodium 40 MG/0.4 ML SYRINGE SC SCH (08:45)
[2019-03-08] MEDS: Amoxicillin/Potassium Clav 875 MG TAB PO SCH (08:45)
[2019-03-08] MEDS: Saccharomyces boulardii 250 MG CAP PO SCH (08:45)
--- NOTE | 2019-03-08 10:57 | PDOC.EVN ---
Event Note - Event Note Event Note: Seen and examined. Discharged home. Discharge summary dictated. #[id number]
--- NOTE | 2019-03-08 11:15 | DIS ---
DATE OF ADMISSION: 03/02/2019 DATE OF DISCHARGE: 03/08/2019 PRIMARY CARE PHYSICIAN: Ramon Bertrand, DISCHARGE DIAGNOSES: 1. Right leg cellulitis. 2. Right leg abscess. 3. Status post incision and drainage of right leg abscess. 4. Hypokalemia. 5. Hyperlipidemia. 6. Hypertension. 7. Staphylococcus aureus infection. CONSULT: General Surgery. PROCEDURE PERFORMED: Incision and drainage of right leg abscess. HOSPITAL COURSE: A 43-year-old male patient with known history of hypertension, admitted with persistent right lower extremity redness and swelling as well as pain despite outpatient oral clindamycin therapy. The patient was started on broad-spectrum antibiotic therapy with vancomycin and Zosyn with improvement in redness. He, however, developed localized fluctuant area on the proximal aspect of right leg anteriorly suggestive of abscess. General Surgery consult was obtained and the patient subsequently have incision and drainage. Culture of the purulent material grew methicillin-susceptible Staphylococcus aureus. Antibiotics were subsequently streamlined in-line with culture result. The patient remained stable and was subsequently discharged home to continue wound care. PHYSICAL EXAMINATION: VITAL SIGNS: Temperature 98.1, pulse 80, respiratory rate 14, SpO2 of 99% on room air, and blood pressure is 116/71. GENERAL: Male patient, in no obvious distress. Afebrile. Anicteric. Acyanotic. HEENT: Normocephalic, atraumatic. Pupils are reacting to light. Oral mucosa is moist. CARDIOVASCULAR: Regular rhythm and rate with normal heart sounds 1 and 2. RESPIRATORY: Good air entry bilaterally with no obvious crackle or rhonchi or use of accessory muscles. GASTROINTESTINAL: Abdomen is full, soft, nontender, and nondistended with normal bowel sounds. EXTREMITIES: Right leg edema with proximal dressing noted. Other extremities are grossly atraumatic and unremarkable with no edema or erythema. SKIN: Patchy erythematous papules with scabs and some erythema noted. Some excoriation rivas are also noted. CENTRAL NERVOUS SYSTEM: Conscious, alert, oriented x3 with appropriate mental status. Cranial nerves II through XII are grossly intact. The patient is ambulant. DISCHARGE DISPOSITION: Home. DISCHARGE CONDITION: Improved. DISCHARGE MEDICATIONS: 1. Lipitor 40 mg p.o. daily. 2. Omeprazole 40 mg p.o. daily. 3. Levofloxacin 750 mg p.o. daily for 10 days. 4. Florastor 250 mg p.o. daily for 14 days. 5. Tramadol 50 mg q.4 p.r.n. for pain x20 tablets. FOLLOWUP: 1. With PCP in 7 days. 2. With General surgery/Trauma in 2 weeks. 3. With wound care as scheduled for dressing changes. TIME SPENT: This discharge took more than 30 minutes. Job ID: [id number]
[2019-03-08] MEDS: traMADol HCl 50 MG TAB PO PRN (14:58)
[2019-03-08 16:20] VITALS: BP 124/81; TEMP 98.4
--- NOTE | 2019-03-11 04:10 | PQF ---
[employer] Win[employer] ViewerSUJOO CHU HUDSON SEGOVIA MD [id number] [id number] CLINICAL DOCUMENTATION CLARIFICATION FORM: POST DISCHARGE Addendum to original discharge summary date: ____ Late entry note date: __ DATE: 03/11/2019 ATTN:HUDSON SEGOVIA MD Please exercise your independent, professional judgment in responding to the clarification form. Clinical indicators are provided on the bottom of this form for your review Please check appropriate box(s) to clarify if the following diagnosis has been ruled in or ruled out: SEPSIS [ ] Ruled in diagnosis [ ] Continue to treat [ ] Resolved [ X ] Ruled out diagnosis [ ] Cannot rule out diagnosis [ X] Other diagnosis Cellulitis of the right leg with abscess____ [ ] Unable to determine For continuity of documentation, please document condition throughout progress notes and discharge summary. Thank You. CLINICAL INDICATORS - SIGNS / SYMPTOMS / LABS - Sepsis- ED record, 03/02, Saul Acharya DO - Temp:100.9, RR:21, Pulse:109- ED record, 03/02, Saul Acharya DO - Right leg cellulitis-DS, 03/08, HUDSON SEGOVIA MD - Right leg abscess-DS, 03/08, HUDSON SEGOVIA MD - WBC: 10.4-Laboratory, 03/02 - grew MSSA-DS, 03/08, HUDSON SEGOVIA MD RISK FACTORS -Leg edema right-Hospital PN, 03/04, Yusuf Duron Obi, MD -Hypokalemia- Hospital PN, 03/04, Yusuf Duron Obi, MD TREATMENTS - Incision and drainage-OP report, 03/06, Danita Tadeo DO -`Vancomycin.IV-MAR, 03/02 (This form is maintained as a part of the permanent medical record) [email or web address] , [email or web address]. All Rights Reserved Staci Thomas [not provided] [not provided] CARLAD
== END 2019-03-08 18:15 | disposition home or self-care (01) | DRG 603 ==
LOC: ERS 20:58 → SURG B 22:31 → SJJU 03-05 08:06 → SURG B 03-05 08:08
PROVIDERS: ADMIT Internal Medicine; ATTEND Internal Medicine
PROC: 0H9KXZZ Drainage of Right Lower Leg Skin, External Approach (ICD-10-PCS; principal; 2019-03-06)
DX: L03.115 Cellulitis of right lower limb (principal); E78.5 Hyperlipidemia, unspecified; I10 Essential (primary) hypertension; E87.6 Hypokalemia; E78.00 Pure hypercholesterolemia, unspecified
CPT/HCPCS: 36415; 71045; 80048; 80053; 80069; 80202; 81003; 81015; 83605; 83735; 83880; 85025; 85652; 86140; 87040; 87070; 87077; 87149; 87186; 87205; 93005; 96360; 96361; 96365; 96366; 96367; J1650; J2270; J2405; J2543; J3370; J3490; J7050; Q0163

== ENCOUNTER 2022-01-28 15:55 | Observation (INO) | payer BC ==
[2022-01-28 16:26] VITALS: BMI 36.3
[2022-01-28] MEDS ORDERED: Nitroglycerin 0.4 MG TAB (25 Tab Bottle) SL PRN (19:23)
[2022-01-28] MEDS ORDERED: Ondansetron PF 4 MG/2 ML Vial IVP PRN (19:54)
[2022-01-28] MEDS ORDERED: Senokot S 8.6-50 MG TAB PO PRN (19:54)
[2022-01-28] MEDS ORDERED: Metoprolol Tartrate 50 MG TAB PO SCH (20:15)
[2022-01-28] MEDS ORDERED: Furosemide 20 MG/2 ML VIAL SLOW IVP SCH (20:15)
[2022-01-28] MEDS: Sodium Chloride 0.9% 1,000 ML IV SCH (20:34)
[2022-01-28] MEDS ORDERED: Enoxaparin Sodium 40 MG/0.4 ML SYRINGE SC SCH (21:00)
[2022-01-28] MEDS ORDERED: Pantoprazole 40 MG VIAL IVP SCH (21:00)
[2022-01-28] MEDS ORDERED: Communication Order-Pharmacy FS SCH (22:16)
[2022-01-28] MEDS ORDERED: Enoxaparin Sodium 30 MG/0.3 ML SYRINGE SC SCH (22:45)
[2022-01-28] MEDS ORDERED: Enoxaparin Sodium 100 MG/ML SYRINGE SC SCH (22:45)
[2022-01-28] MEDS ORDERED: Morphine 2 MG/ML VIAL SLOW IVP PRN ×2 (22:59)
[2022-01-28 23:13] LABS: Hemoglobin 16.1 g/dL (14.0-18.0); Platelet Count 148 thou/uL (130-400)
[2022-01-29 04:35] LABS: #Eosinphils 0.4 thou/uL (0.0-0.7); #Monocytes 0.7 thou/uL (0.11-0.59); #Neutrophils 3.6 thou/uL (1.40-6.50); %Basophils 0.7 % (0.0-1.0); %Eosinophils 6.7 % (0.0-10.0); %Lymphocytes 17.4 % (21.0-51.0); %Monocytes 12.6 % (0.0-10.0); %Neutrophils 62.6 % (42.0-75.0); Hemoglobin 15.9 g/dL (14.0-18.0); Mean Corpuscular Hemoglobin 35.2 pg (27.0-31.0); Mean Platelet Volume 8.6 fL (7.4-10.4); Platelet Count 137 thou/uL (130-400); RBC Distribution Width 12.3 % (11.5-14.5); Red Blood Cell (RBC) Count 4.53 mill/uL (4.70-6.10); White Blood Cell (WBC) Count 5.7 thou/uL (4.8-10.8)
[2022-01-29 05:02] LABS: Hemoglobin A1c 4.9 % (4.0-6.0)
[2022-01-29 05:20] LABS: ALT (SGPT) 98 U/L (8-55); AST (SGOT) 56 U/L (5-34); Albumin 3.8 g/dL (3.5-5.0); Alkaline Phosphatase 60 U/L (40-110); Anion Gap 12 mmol/L (10-20); BUN (Urea Nitrogen) 12 mg/dL (8.9-20.6); Bilirubin, Total 0.9 mg/dL (0.2-1.2); Calc. Creatinine Clearance 182 mL/min (70-130); Calcium 8.6 mg/dL (7.8-10.44); Carbon Dioxide 27 mmol/L (22-29); Cardiac Risk 6.7 (Less than 4.5); Chloride 103 mmol/L (98-107); Cholesterol 227 mg/dl (< 200 Desired); Estimated GFR 105; Globulin 3.1 g/dL (2.4-3.5); Glucose 104 mg/dL (70-105); HDL Cholesterol 34 mg/dL (>60 Neg Risk); LDL Cholesterol, Calculated 125 mg/dL; Potassium 3.7 mmol/L (3.5-5.1); Protein, Total 6.9 g/dL (6.0-8.3); Sodium 138 mmol/L (136-145); Triglycerides 341 mg/dL (Less than 150)
[2022-01-29] MEDS: Sodium Chloride 0.9% 1,000 ML IV SCH (06:23)
[2022-01-29] MEDS ORDERED: Enoxaparin Sodium 30 MG/0.3 ML SYRINGE SC SCH (09:00)
[2022-01-29] MEDS ORDERED: Metoprolol Tartrate 50 MG TAB PO SCH (09:00)
[2022-01-29] MEDS ORDERED: Enoxaparin Sodium 40 MG/0.4 ML SYRINGE SC SCH (09:00)
[2022-01-29] MEDS ORDERED: Enoxaparin Sodium 80 MG/0.8 ML SYRINGE SC SCH (09:00)
[2022-01-29] MEDS ORDERED: Amlodipine 5 MG TAB PO SCH (09:00)
[2022-01-29] MEDS: Furosemide 20 MG/2 ML VIAL SLOW IVP SCH (10:25)
[2022-01-29] MEDS: Pantoprazole 40 MG VIAL IVP SCH (10:30)
[2022-01-29] MEDS: Enoxaparin Sodium 100 MG/ML SYRINGE SC SCH ×2 (11:32→21:27)
[2022-01-29 20:38] LABS: Troponin I 0.036 ng/mL (< 0.028)
[2022-01-29] MEDS ORDERED: Rosuvastatin 20 MG TAB PO SCH (21:00)
[2022-01-30 05:16] LABS: #Eosinphils 0.3 thou/uL (0.0-0.7); #Lymphocytes 1.3 thou/uL (1.20-3.40); #Monocytes 0.7 thou/uL (0.11-0.59); #Neutrophils 3.2 thou/uL (1.40-6.50); %Basophils 0.6 % (0.0-1.0); %Eosinophils 6.3 % (0.0-10.0); %Lymphocytes 23.2 % (21.0-51.0); %Monocytes 11.8 % (0.0-10.0); %Neutrophils 58.2 % (42.0-75.0); Mean Corpuscular HGB CONC 34.8 g/dL (32.0-36.0); Mean Corpuscular Hemoglobin 35.9 pg (27.0-31.0); Mean Platelet Volume 8.4 fL (7.4-10.4); Platelet Count 133 thou/uL (130-400); RBC Distribution Width 12.2 % (11.5-14.5); Red Blood Cell (RBC) Count 4.44 mill/uL (4.70-6.10); White Blood Cell (WBC) Count 5.5 thou/uL (4.8-10.8)
[2022-01-30 05:32] LABS: Anion Gap 12 mmol/L (10-20); BUN (Urea Nitrogen) 13 mg/dL (8.9-20.6); Calc. Creatinine Clearance 176 mL/min (70-130); Calcium 8.8 mg/dL (7.8-10.44); Carbon Dioxide 27 mmol/L (22-29); Chloride 104 mmol/L (98-107); Estimated GFR 101; Glucose 98 mg/dL (70-105); Potassium 3.7 mmol/L (3.5-5.1); Sodium 139 mmol/L (136-145)
[2022-01-30] MEDS: Pantoprazole 40 MG VIAL IVP SCH (07:57)
[2022-01-30] MEDS ORDERED: Amlodipine 5 MG TAB PO SCH (08:24)
[2022-01-30] MEDS ORDERED: Amlodipine 10 MG TAB PO SCH (09:00)
[2022-01-30] MEDS ORDERED: Metoprolol Tartrate 50 MG TAB PO SCH (09:00)
[2022-01-30] MEDS ORDERED: Lisinopril 10 MG TAB PO SCH (10:45)
[2022-01-30] MEDS: Enoxaparin Sodium 100 MG/ML SYRINGE SC SCH (11:45)
[2022-01-30] MEDS: Furosemide 20 MG/2 ML VIAL SLOW IVP SCH (11:45)
[2022-01-30 12:06] VITALS: BP 166/90; TEMP 97.9
[2022-01-30] MEDS ORDERED: Regadenoson 0.4 MG/5 ML SYRINGE ONE (12:24)
[2022-01-31] MEDS ORDERED: Lisinopril 10 MG TAB PO SCH (09:00)
== END 2022-01-30 13:35 | disposition home or self-care (01) ==
LOC: 2SW 16:08
PROVIDERS: ADMIT Hospitalist; ATTEND Hospitalist
DX: R07.9 Chest pain, unspecified (principal); R77.8 Other specified abnormalities of plasma proteins; R73.9 Hyperglycemia, unspecified; R74.8 Abnormal levels of other serum enzymes; E78.00 Pure hypercholesterolemia, unspecified; I11.9 Hypertensive heart disease without heart failure; K21.9 Gastro-esophageal reflux disease without esophagitis; I08.3 Combined rheumatic disorders of mitral, aortic and tricuspid valves; E66.9 Obesity, unspecified; Z68.36 Body mass index [BMI] 36.0-36.9, adult; Z79.899 Other long term (current) drug therapy; Z91.14 Patient's other noncompliance with medication regimen
CPT/HCPCS: 36415; 36416; 78452; 80048; 80053; 80061; 83036; 84443; 84484; 85025; 93017; 93306; 96372; 96374; 96375; 96376; A9500; C9113; G0378; J1650; J1940; J2785; J7050

== ENCOUNTER 2025-03-25 02:12 | Inpatient (IN) | payer BC ==
[2025-03-25 03:03] VITALS: BMI 38.1
[2025-03-25] MEDS ORDERED: Calcium Carbonate 500 MG ChewTAB PO PRN (03:04)
[2025-03-25] MEDS ORDERED: Ondansetron PF 4 MG/2 ML Vial IVP PRN (03:04)
[2025-03-25] MEDS ORDERED: Acetaminophen 325 MG TAB PO PRN (03:04)
[2025-03-25] MEDS ORDERED: Electrolyte Replacement Protocol 1 EACH FS PRN (03:15)
[2025-03-25 04:17] LABS: #Basophils 0.05 10x3/uL (0.0-0.2); #Eosinophils 0.54 10x3/uL (0.0-0.7); #Monocytes 0.78 10x3/uL (0.11-0.59); #Neutrophils 3.84 10x3/uL (1.40-6.50); %Basophils 0.7 % (0.0-1.0); %Eosinophils 7.4 % (0.0-10.0); %Lymphocytes 27.8 % (21.0-51.0); %Monocytes 10.7 % (0.0-10.0); %Neutrophils 53.0 % (42.0-75.0); Hematocrit 45.9 % (42.0-52.0); Hemoglobin 15.5 g/dL (14.0-18.0); Mean Corpuscular Hemoglobin 34.4 pg (27.0-31.0); Mean Corpuscular Volume 102.0 fL (78.0-98.0); Platelet Count 172 10x3/uL (130-400); Red Blood Cell (RBC) Count 4.50 mill/uL (4.70-6.10); White Blood Cell (WBC) Count 7.26 10x3/uL (4.8-10.8)
[2025-03-25 04:38] LABS: ALT (SGPT) 85 U/L (Less than 45); AST (SGOT) 81 U/L (11-34); Albumin 3.5 g/dL (3.1-4.5); Alkaline Phosphatase 63 U/L (40-110); Anion Gap 20 mmol/L (10-20); BUN (Urea Nitrogen) 12 mg/dL (8.9-20.6); Bilirubin, Total 0.7 mg/dL (0.3-1.2); Calc. Creatinine Clearance 164 mL/min (70-130); Calcium 9.0 mg/dL (7.8-10.44); Carbon Dioxide 15 mmol/L (22-29); Chloride 101 mmol/L (98-107); Globulin 3.2 g/dL (2.4-3.5); Glucose 94 mg/dL (70-105); Potassium 3.1 mmol/L (3.5-5.1); Sodium 133 mmol/L (136-145)
[2025-03-25] MEDS: Multivit, Therapeutic 1 TAB PO SCH (08:25)
[2025-03-25] MEDS: Aspirin Chewable 81 MG TAB PO SCH (08:25)
[2025-03-25] MEDS: Folic Acid 1 MG TAB PO SCH (08:25)
[2025-03-25] MEDS: Pantoprazole 40 MG DR.TAB PO SCH (09:01)
[2025-03-25] MEDS ORDERED: Heparin 10,000 UNITS/ 10 ML VIAL SLOW IVP SCH (11:00)
[2025-03-25] MEDS: Apixaban 5 MG TAB PO SCH ×2 (11:39→20:41)
[2025-03-25 12:07] LABS: Anion Gap 16 mmol/L (10-20); BUN (Urea Nitrogen) 10 mg/dL (8.9-20.6); Calc. Creatinine Clearance 213 mL/min (70-130); Calcium 8.8 mg/dL (7.8-10.44); Carbon Dioxide 18 mmol/L (22-29); Chloride 106 mmol/L (98-107); Glucose 97 mg/dL (70-105); Magnesium 2.0 mg/dL (1.6-2.6); Potassium 4.3 mmol/L (3.5-5.1); Sodium 136 mmol/L (136-145)
[2025-03-25] MEDS ORDERED: Enoxaparin 80 MG (0.8 mL) SYRINGE SC SCH (12:30)
[2025-03-25] MEDS ORDERED: Lisinopril 10 MG TAB PO SCH (13:15)
[2025-03-25] MEDS: Lisinopril 20 MG TAB PO SCH (13:31)
[2025-03-25] MEDS: Magnesium 2 GM/50 ML(in water) 2 GM in Premix 1 BAG IVPB SCH (14:36)
[2025-03-25] MEDS: Communication Order-Pharmacy FS ONE (14:47)
[2025-03-25] MEDS ORDERED: Lisinopril 20 MG TAB PO SCH (21:00)
[2025-03-26 04:59] LABS: Hematocrit 43.8 % (42.0-52.0); Hemoglobin 14.9 g/dL (14.0-18.0); Mean Corpuscular Hemoglobin 34.5 pg (27.0-31.0); Mean Corpuscular Volume 101.4 fL (78.0-98.0); Platelet Count 128 10x3/uL (130-400); Red Blood Cell (RBC) Count 4.32 mill/uL (4.70-6.10); White Blood Cell (WBC) Count 5.47 10x3/uL (4.8-10.8)
[2025-03-26 05:00] LABS: Anion Gap 13 mmol/L (10-20); BUN (Urea Nitrogen) 10 mg/dL (8.9-20.6); Calc. Creatinine Clearance 211 mL/min (70-130); Calcium 8.4 mg/dL (7.8-10.44); Carbon Dioxide 23 mmol/L (22-29); Chloride 105 mmol/L (98-107); Glucose 92 mg/dL (70-105); Potassium 3.5 mmol/L (3.5-5.1); Sodium 137 mmol/L (136-145)
[2025-03-26 08:01] LABS: Macrocytosis SLIGHT = 6-15 cells HPF (0-5); Platelet Adequacy Comment Platelets Decreased; Polychromasia SLIGHT = 2-3 cells HPF (0-2)
[2025-03-26] MEDS: Lisinopril 20 MG TAB PO SCH (08:27)
[2025-03-26] MEDS: Metoprolol Succinate XL 50 MG ER.TAB PO SCH (08:27)
[2025-03-26 08:36] VITALS: BP 154/91; TEMP 98.2
[2025-03-28] MEDS ORDERED: Thiamine 100 MG TAB PO SCH (04:30)
== END 2025-03-26 13:33 | disposition home or self-care (01) | DRG 309 ==
LOC: OBS 03:00
PROVIDERS: ADMIT Student in an Organized Health Care Education/Training Program; ATTEND Internal Medicine
PROC: HZ2ZZZZ Detoxification Services for Substance Abuse Treatment (ICD-10-PCS; principal; 2025-03-25)
DX: I48.91 Unspecified atrial fibrillation (principal); F10.239 Alcohol dependence with withdrawal, unspecified; I5A Non-ischemic myocardial injury (non-traumatic); Y90.6 Blood alcohol level of 120-199 mg/100 ml; I10 Essential (primary) hypertension; E66.9 Obesity, unspecified; E87.6 Hypokalemia; E83.42 Hypomagnesemia; K21.9 Gastro-esophageal reflux disease without esophagitis; Z98.890 Other specified postprocedural states; Z87.891 Personal history of nicotine dependence; Z68.38 Body mass index [BMI] 38.0-38.9, adult
CPT/HCPCS: 36415; 80048; 83605; 83735; 83880; 84443; 85025; J0282; J1644; J3411; J3475; J3480; J7070